=== PATIENT | male | born 1995 | race Caucasian/White ===

== ENCOUNTER 2024-07-08 06:24 | Day surgery (SDC) | payer OTHER, SELFPAY ==
[2024-07-08] VITALS (8 sets, daily range): BP systolic 117–144; BP diastolic 59–84; BMI 29.2
[2024-07-08] MEDS: NORMOSOL-R/PLASMALYTE-A 1000 IV (10:37)
== END 2024-07-08 15:49 | disposition home or self-care (01) ==
LOC: SDS 06:24
PROVIDERS: ATTENDING PHYSICIAN Otolaryngology; FAMILY PHYSICIAN Family Medicine
PROC: 0CTPXZZ Resection of Tonsils, External Approach (ICD-10-PCS; 2024-07-08)
DX: J35.01 Chronic tonsillitis (principal)
CPT/HCPCS: 42826; 88304